=== PATIENT | female | born 1965 | race Caucasian/White ===

== ENCOUNTER 2018-07-09 15:51 | Emergency (ER) | payer BC ==
[~2018-07-09] VITALS: Ht 170.1 cm; Wt 111.1 kg
[2018-07-09 15:51] VITALS: BP 142/68
[~2018-07-09 15:51] MED LIST: AMOXICILLIN500 M2 PO; ATIVAN0.5 MG PO; AUGMENTIN 875875 MG PO; BALANCED B PO; BENTYL10 MG PO; CABERGOLINE0.5 MG PO; Carafate1 GM PO; DIAMOX SEQUELS500 MG PO; ELMIRON100 MG PO; FLONASE 0.05% 121 EA NAS; PAXIL20 MG PO; POTASSIUM20 MEQ PO; PREDNISONE20 M1 PO; PROTONIX40 MG PO; ROBITUSSIN DM 105 ML PO; URIBEL CAPSULE1 EACH PO; ZYRTEC10 MG PO
== END 2018-07-09 18:18 | disposition home or self-care (01) ==
LOC: ED 15:51
DX: M76.892 Other specified enthesopathies of left lower limb, excluding foot (principal); M25.562 Pain in left knee; Z79.899 Other long term (current) drug therapy; X50.1XXA Overexertion from prolonged static or awkward postures, initial encounter; Y93.89 Activity, other specified; Y92.098 Other place in other non-institutional residence as the place of occurrence of the external cause; Y99.8 Other external cause status

== ENCOUNTER → 2018-11-29 | Day surgery (SDC) | payer BC ==
[~2018-11-29] VITALS: Ht 170.1 cm; Wt 106.6 kg
[~2018-11-29] MED LIST changes: +B12,B-12,B 12500 MC1 PO; +PRAVACHOL40 MG PO
--- NOTE | ~2018-11-29 | O ---
[place], [place] OPERATIVE NOTE NAME: MARGARETTE HARRINGTON UNIT #: [id number] ROOM: DOCTOR: RUBIN LINDA MD BIRTHDATE: [birth year] DOS: 11/29/2018 HISTORY OF PRESENT ILLNESS: The patient is a 53-year-old patient who has presented with chief complaint of gastro-abdominal pain. The patient is on Protonix. The patient on Carafate. ALLERGIES: No known medication. FAMILY HISTORY: Grandmother with colonic carcinoma. PAST SURGICAL HISTORY: Right hip x 2 and . PAST MEDICAL HISTORY: Hyperlipidemia. SOCIAL HISTORY: Smoker, half a pack, nonalcohol consumer. PROCEDURE: Today's procedure part of investigation is panendoscopy plus biopsy. PREMEDICATION: Propofol. SCOPE: Olympus forward-viewing gastroscope Q10 video. REPORT: After putting the patient in left lateral position and application of lubricant to the scope, the scope was introduced. Thereafter, under direct visualization, advanced through the length of esophagus without difficulty. Small hiatal hernia was seen. Gastritis was seen. Antral biopsies obtained. Duodenal bulb, second and third part are within normal limits. Withdrawn back to the gastric pouch. Presence of streaks of blood in the greater curvature was noticed, photographed. This is prior to biopsy. GI reflection of scope in the cardia reveals cardia to be benign. The patient extubated, tolerated the procedure well. IMPRESSION: Hiatal hernia, gastritis, status post biopsy. PLAN AND DISCUSSION: Continuation with Protonix 40 mg b.i.d., Carafate 1 gram 4 times a day. We are going to proceed with colonoscopy. A 53-year-old patient who has presented with chief complaint of colonic screening, undergoing investigation for family history of colonic carcinoma and grandmother mother. PROCEDURE: Today's procedure part of investigation is colonoscopy plus snare polypectomy x 2. PREMEDICATION: Propofol. SCOPE: Olympus forward-viewing colonoscope 10L video. DESCRIPTION OF PROCEDURE: After putting the patient in left lateral position and application of lubricant to the scope, the scope was introduced. [place], [place] OPERATIVE NOTE NAME: MARGARETTE HARRINGTON UNIT #: [id number] ROOM: DOCTOR: ALEXEI BEAR,RUBIN BIRTHDATE: [birth year] Thereafter, under direct visualization, advanced through the length of colon without difficulty. Two polypoid lesions in hepatic flexure with snare was polypectomized. Samples removed. Air was suctioned out. The patient was extubated, tolerated the procedure well. IMPRESSION: Sessile polyp, hepatic flexure, status post snare polypectomies. PLAN: High fiber diet. Activity, ad-lauren. Followup on colonoscopy. Most likely a colonoscopy at most in the next couple of years due to the presence of history of multi members on mother's side with colon carcinoma in herself with colonic polyps that I expect to be at least adenomatous. Thank you very much indeed. RUBIN LINDA MD CM:OPRECORD:OPERATIVE NOTE [id number] ANCELMO LINDA MD 11/29/18 1248 interface
[2018-11-29 09:40] VITALS: BP 143/89
[2018-11-29 11:38] VITALS: BP 111/64
[2018-11-29 11:53] VITALS: BP 124/70
[2018-11-29 12:08] VITALS: BP 124/66
== END | disposition home or self-care (01) ==
LOC: SDC 11-27 15:30
DX: Z12.11 Encounter for screening for malignant neoplasm of colon (principal); K29.50 Unspecified chronic gastritis without bleeding; K57.30 Diverticulosis of large intestine without perforation or abscess without bleeding; K21.9 Gastro-esophageal reflux disease without esophagitis; E78.5 Hyperlipidemia, unspecified; K44.9 Diaphragmatic hernia without obstruction or gangrene; J45.909 Unspecified asthma, uncomplicated; F32.9 Major depressive disorder, single episode, unspecified; F41.9 Anxiety disorder, unspecified; F17.210 Nicotine dependence, cigarettes, uncomplicated; E66.9 Obesity, unspecified; Z68.36 Body mass index [BMI] 36.0-36.9, adult; Z98.890 Other specified postprocedural states; Z79.899 Other long term (current) drug therapy

== ENCOUNTER 2018-12-18 18:46 | Emergency (ER) | payer BC ==
[~2018-12-18] VITALS: Ht 170.1 cm; Wt 106.6 kg
[2018-12-18 18:49] VITALS: BP 113/88
== END 2018-12-18 20:54 | disposition home or self-care (01) ==
LOC: ED 18:46
DX: M79.662 Pain in left lower leg (principal); F17.200 Nicotine dependence, unspecified, uncomplicated; K21.9 Gastro-esophageal reflux disease without esophagitis; G93.2 Benign intracranial hypertension; Z98.890 Other specified postprocedural states; Z79.899 Other long term (current) drug therapy

== ENCOUNTER 2019-05-28 13:38 | Emergency (ER) | payer BC ==
[~2019-05-28] VITALS: Ht 170.1 cm; Wt 109.8 kg
[2019-05-28 13:43] VITALS: BP 164/85
[2019-05-28 15:16] LABS: BILIRUBIN NEGATIVE (NEGATIVE); BLOOD NEGATIVE (NEGATIVE); CLARITY CLEAR (CLEAR); COLOR YELLOW (YELLOW); GLUCOSE NEGATIVE (NEGATIVE); KETONE NEGATIVE (NEGATIVE); UROBILINOGEN 0.2 E.U./dl (0.2-1.0)
[2019-05-28 15:16] LABS: BASO % 0.4 % (0.0-1.0); EOS # 0.1 10*3/uL (0.0-0.4); EOS % 1.5 % (1.0-4.0); HEMATOCRIT 46.3 % (37.0-47.0); HEMOGLOBIN 14.9 g/dl (12.0-16.0); LYMPH # 2.2 10*3/uL (1.3-4.4); LYMPH % 26.7 % (27.0-41.0); MEAN CELL VOLUME 90.1 fl (81.0-99.0); MEAN CORPUSCULAR HGB CONC 32.2 g/dl (33.0-37.0); MEAN PLATELET VOLUME 10.6 fl (9.6-12.3); MONO # 0.5 10*3/uL (0.1-1.0); MONO % 6.3 % (3.0-9.0); NEUT # 5.3 10*3/uL (2.3-7.9); NEUT % 64.7 % (47.0-73.0); PLATELET COUNT AUTOMATED 213 10*3/uL (130-400); RED BLOOD COUNT 5.14 10*6/uL (4.10-5.10); WHITE BLOOD COUNT 8.1 10*3/uL (4.8-10.8)
[2019-05-28 15:17] LABS: BACTERIA 4+; LEUKO ESTERASE TRACE (NEGATIVE); NITRITE POSITIVE (NEGATIVE)
[2019-05-28 15:33] LABS: ALBUMIN 3.8 gm/dl (3.1-4.5); ALKALINE PHOSPHATASE 93 U/L (45-117); BUN 14 mg/dl (7-24); CHLORIDE 110 mmol/L (98-107); CREATININE 1.09 mg/dL (0.55-1.02); LIPASE 168 U/L (73-393); POTASSIUM 3.9 mmol/L (3.5-5.1); SGOT/AST 14 IU/L (3-35); SGPT/ALT 26 U/L (12-78); SODIUM 141 mmol/L (136-145); TOTAL PROTEIN 7.4 gm/dL (6.4-8.2)
[2019-05-28] MEDS ORDERED: DICYCLOMINE HCL10 MG PO (18:27)
== END 2019-05-28 18:30 | disposition home or self-care (01) ==
LOC: ED 13:38
PROVIDERS: Physician Assistant
DX: R10.32 Left lower quadrant pain (principal); R11.0 Nausea; J45.909 Unspecified asthma, uncomplicated; K21.9 Gastro-esophageal reflux disease without esophagitis; Z79.899 Other long term (current) drug therapy

== ENCOUNTER 2019-10-30 18:05 | Emergency (ER) | payer BC ==
[~2019-10-30] VITALS: Ht 170.1 cm; Wt 113.4 kg
[~2019-10-30 18:05] MED LIST changes: +DICYCLOMINE HCL10 MG PO
[2019-10-30 18:45] LABS: BASO % 0.3 % (0.0-1.0); EOS # 0.2 10*3/uL (0.0-0.4); EOS % 1.7 % (1.0-4.0); HEMATOCRIT 44.4 % (37.0-47.0); LYMPH # 2.8 10*3/uL (1.3-4.4); LYMPH % 32.4 % (27.0-41.0); MEAN CELL VOLUME 88.4 fl (81.0-99.0); MEAN CORPUSCULAR HGB 28.5 pg (27.0-31.0); MEAN CORPUSCULAR HGB CONC 32.2 g/dl (33.0-37.0); MEAN PLATELET VOLUME 10.7 fl (9.6-12.3); MONO # 0.7 10*3/uL (0.1-1.0); MONO % 7.8 % (3.0-9.0); NEUT # 4.9 10*3/uL (2.3-7.9); NEUT % 57.5 % (47.0-73.0); PLATELET COUNT AUTOMATED 197 10*3/uL (130-400); RED BLOOD COUNT 5.02 10*6/uL (4.10-5.10); RED CELL DISTRI WIDTH 13.8 % (0-14.5); WHITE BLOOD COUNT 8.6 10*3/uL (4.8-10.8)
[2019-10-30 19:02] LABS: ALBUMIN 3.5 gm/dl (3.1-4.5); ALKALINE PHOSPHATASE 96 U/L (45-117); BUN 14 mg/dl (7-24); CHLORIDE 112 mmol/L (98-107); CREATININE 1.08 mg/dL (0.55-1.02); POTASSIUM 3.5 mmol/L (3.5-5.1); SGOT/AST 21 IU/L (3-35); SGPT/ALT 31 U/L (12-78); SODIUM 142 mmol/L (136-145); TOTAL PROTEIN 7.2 gm/dL (6.4-8.2)
[2019-10-30 20:12] LABS: BILIRUBIN NEGATIVE (NEGATIVE); BLOOD NEGATIVE (NEGATIVE); CLARITY CLEAR (CLEAR); COLOR YELLOW (YELLOW); GLUCOSE NEGATIVE (NEGATIVE); KETONE NEGATIVE (NEGATIVE); LEUKO ESTERASE TRACE (NEGATIVE); NITRITE NEGATIVE (NEGATIVE); PH 6.5 (5.0-9.0); UROBILINOGEN 0.2 E.U./dl (0.2-1.0)
[2019-10-30 20:14] LABS: BACTERIA TRACE; EPITHELIAL CELLS TNTC; WBC 0-2 wbc/hpf (0-5)
[2019-10-30 20:43] VITALS: BP 114/56
[2019-10-30] MEDS ORDERED: DICYCLOMINE HCL20 MG PO (21:11)
== END 2019-10-30 22:20 | disposition home or self-care (01) ==
LOC: ED 18:05
PROVIDERS: Nurse Practitioner
DX: K21.9 Gastro-esophageal reflux disease without esophagitis (principal); R16.0 Hepatomegaly, not elsewhere classified; R11.2 Nausea with vomiting, unspecified; J45.909 Unspecified asthma, uncomplicated; Z79.899 Other long term (current) drug therapy

== ENCOUNTER 2020-09-19 20:42 | Emergency (ER) | payer OTHER ==
[~2020-09-19] VITALS: Ht 170.1 cm; Wt 115.7 kg
[~2020-09-19 20:42] MED LIST changes: +DICYCLOMINE HCL20 MG PO
[2020-09-19 20:46] VITALS: BP 137/71
[2020-09-19] MEDS ORDERED: MEDROL DOSEPAK4 MG PO (22:49)
== END 2020-09-19 23:00 | disposition home or self-care (01) ==
LOC: ED 20:42
DX: M54.16 Radiculopathy, lumbar region (principal); Z79.899 Other long term (current) drug therapy; Z98.890 Other specified postprocedural states

== ENCOUNTER → 2020-09-22 | Outpatient (CLI) | payer OTHER ==
[~2020-09-22] MED LIST changes: +MEDROL DOSEPAK4 MG PO
== END | disposition home or self-care (01) ==
LOC: US 16:21
PROVIDERS: ATTEND Physician Assistant
DX: M79.661 Pain in right lower leg (principal)

== ENCOUNTER 2022-12-03 10:19 | Emergency (ER) | payer OTHER ==
[~2022-12-03] VITALS: Wt 88.0 kg
[2022-12-03 10:32] VITALS: BP 126/73
[2022-12-03 10:50] LABS: BASO % 0.3 % (0.0-1.0); EOS # 0.1 10*3/uL (0.0-0.4); EOS % 1.6 % (1.0-4.0); HEMATOCRIT 43.5 % (37.0-47.0); LYMPH # 1.8 10*3/uL (1.3-4.4); LYMPH % 26.6 % (27.0-41.0); MEAN CELL VOLUME 93.5 fl (81.0-99.0); MEAN CORPUSCULAR HGB 31.6 pg (27.0-31.0); MEAN CORPUSCULAR HGB CONC 33.8 g/dl (33.0-37.0); MEAN PLATELET VOLUME 9.9 fl (9.6-12.3); MONO # 0.4 10*3/uL (0.1-1.0); MONO % 5.5 % (3.0-9.0); NEUT # 4.5 10*3/uL (2.3-7.9); NEUT % 65.9 % (47.0-73.0); PLATELET COUNT AUTOMATED 204 10*3/uL (130-400); RED BLOOD COUNT 4.65 10*6/uL (4.10-5.10); RED CELL DISTRI WIDTH 13.1 % (0-14.5); WHITE BLOOD COUNT 6.9 10*3/uL (4.8-10.8)
[2022-12-03 11:11] LABS: ALKALINE PHOSPHATASE 75 U/L (46-116); BUN 10 mg/dl (9-23); CHLORIDE 111 mmol/L (98-107); SGPT/ALT 8 U/L (10-49); TOTAL PROTEIN 7.1 gm/dL (6.0-8.0)
[2022-12-03] MEDS ORDERED: CYCLOBENZAPRINE5 M3 PO (11:47)
== END 2022-12-03 11:53 | disposition home or self-care (01) ==
LOC: ED 10:19
PROVIDERS: Emergency Medicine
DX: S76.912A Strain of unspecified muscles, fascia and tendons at thigh level, left thigh, initial encounter (principal); R25.2 Cramp and spasm; Z79.899 Other long term (current) drug therapy; Z98.890 Other specified postprocedural states; X58.XXXA Exposure to other specified factors, initial encounter; Y93.89 Activity, other specified; Y92.89 Other specified places as the place of occurrence of the external cause; Y99.8 Other external cause status

== ENCOUNTER → 2023-07-22 | Outpatient (CLI) | payer OTHER ==
[~2023-07-22] MED LIST changes: +CYCLOBENZAPRINE5 M3 PO
== END ==
LOC: US 15:44
PROVIDERS: ATTEND Nurse Practitioner Women's Health
DX: D25.1 Intramural leiomyoma of uterus (principal); N95.0 Postmenopausal bleeding; R93.2 Abnormal findings on diagnostic imaging of liver and biliary tract

== ENCOUNTER → 2023-08-09 | Outpatient (CLI) | payer OTHER | END | disposition home or self-care (01) | LOC: MAMMO 00:58 | PROVIDERS: ATTEND Nurse Practitioner Women's Health | DX: Z12.31 Encounter for screening mammogram for malignant neoplasm of breast (principal) ==

== ENCOUNTER → 2025-02-26 | Outpatient (CLI) | payer OTHER | END | disposition home or self-care (01) | LOC: MAMMO 16:52 | PROVIDERS: ATTEND Obstetrics & Gynecology | DX: Z12.31 Encounter for screening mammogram for malignant neoplasm of breast (principal); R92.313 Mammographic fatty tissue density, bilateral breasts ==